=== PATIENT | male | born 1975 | race Caucasian/White ===

== ENCOUNTER 2024-04-11 08:45 | Emergency (ER) | payer OTHER, SELFPAY ==
[2024-04-11 09:05] VITALS: BP 138/99; PULSE 75; RESP 16; TEMP 36.3; O2SAT 99
--- NOTE | 2024-04-11 09:14 | ED.EYEPROB ---
HPI - Eye Problem General Chief complaint: Eye Problems Stated complaint: irritation both eyes Time Seen by Provider: 04/11/24 09:09 Source: patient and RN notes reviewed Mode of arrival: ambulatory Limitations: no limitations History of Present Illness HPI Narrative: Patient presents today complaining of irritation to the bilateral upper and lower eyelids with redness. Symptoms began yesterday and have worsened since onset. Patient has tried some hydrocortisone on his eyelids without relief. Denies itching, pain, drainage. Denies known exposures or changes in household products or medications. Related Data Allergies Allergy/AdvReac Type Severity Reaction Status Date / Time No Known Allergies Allergy Verified 04/11/24 09:08 Review of Systems Review of Systems: CONSTITUTIONAL: Denies body aches, fever, chills, or sweats. EYES: Denies visual changes, redness, or discharge. + redness and swelling to bilateral eyelids ENT: Denies rhinorrhea, congestion, sore throat, or otalgia. CARDIOVASCULAR: Denies chest pain, palpitations, or edema. RESPIRATORY: Denies cough or dyspnea. GASTROINTESTINAL: Denies abdominal pain, nausea, vomiting, or diarrhea. GENITOURINARY: Denies dysuria or hematuria. SKIN: Denies rash, itching, or wounds. MUSCULOSKELETAL: Denies back pain, joint pain, or myalgia. NEUROLOGIC: Denies headache, numbness, tingling, or weakness. PSYCH: Denies depression or anxiety. PMFSH Comments At time of signature, I have reviewed and agree with nursing past medical, surgical, social and family history unless otherwise noted. Please see nursing chart for further information. There is no relevant family history pertinent to the presenting complaint Exam Narrative: GENERAL: Well-appearing, well-nourished, and in no acute distress. HEAD: Normocephalic, atraumatic. EYES: EOMI. PERRL. No redness or drainage of the eye. Conjunctivae normal. Mild swelling and erythema the bilateral upper and lower eyelids. Lashes normal. No drainage noted. ENT: Mucous membranes pink and moist. NECK: Normal AROM. CHEST: No respiratory distress. EXTREMITIES: Normal range of motion. No edema. SKIN: Warm, dry. Capillary refill normal. Normal skin turgor. Large patch of maculopapular rash to the right antecubital fossa. NEURO: No focal deficits. Alert and oriented x3. Gait steady. PSYCH: Normal affect. No signs of depression or anxiety. Course Course Level of Care: Express Care Visit Vital Signs Vital signs: Vital Signs Temperature 97.4 F L 04/11/24 09:05 Pulse Rate 75 04/11/24 09:05 Respiratory Rate 16 04/11/24 09:05 Blood Pressure 138/99 H 04/11/24 09:05 Pulse Oximetry 99 04/11/24 09:05 Oxygen Delivery Room Air 04/11/24 09:05 Temperature 97.4 F L 04/11/24 09:05 Pulse Rate 75 04/11/24 09:05 Respiratory Rate 16 04/11/24 09:05 Blood Pressure 138/99 H 04/11/24 09:05 Pulse Oximetry 99 04/11/24 09:05 Oxygen Delivery Room Air 04/11/24 09:05 Reviewed MDM - Eye Problem MDM Narrative Medical decision making narrative: Patient will be treated with a course of prednisone for contact dermatitis of the right arm the and periorbital area. Instructed to start an antihistamine as well. Anticipatory guidance given. Differential Diagnosis Differential diagnosis: Likely periorbital cellulitis and other (Contact dermatitis) Critical Care Time Critical Care Time Critical Care Time: No Discharge Plan Discharge Clinical Impression: Contact dermatitis Patient Disposition: Home, Self-Care Condition: Stable Instructions: Contact Dermatitis (DC) Additional Instructions: Start an antihistamine such as Zyrtec, Claritin, Jeanne, or Benadryl. Take the prednisone as directed. Do not continue to put hydrocortisone on your eyelids. Follow-up with your PCP in 2-3 days if symptoms are not improving. Go to the ER if symptoms worsen. Your blood pressure was elevated above 120/80 t
== END 2024-04-11 09:20 | disposition home or self-care (01) ==
PROVIDERS: Emergency Provider Nurse Practitioner; PCP Family Medicine
DX: L25.9 Unspecified contact dermatitis, unspecified cause (principal); M19.90 Unspecified osteoarthritis, unspecified site
CPT/HCPCS: 99213; G0463